=== PATIENT | female | born 1955 | race American Indian/Alaskan Native ===

== ENCOUNTER 2017-04-06 10:13 | Outpatient (CLI) | payer MEDICARE, MEDICAID ==
--- NOTE | 2017-04-06 11:55 | Magnetic Resonance Report ---
MRI LUMBAR SPINE WITHOUT CONTRAST INDICATION: Lumbar disc degenerative disease. COMPARISON: 05/14/2012 CT images. FINDINGS: Noncontrast axial and sagittal T1 and T2-weighted MRI of the lumbar spine demonstrates normal conus medullaris terminating at L1-L2. Mild T12 edema signal anteroinferiorly and also slight along L5 vertebral body inferiorly on the left noted. T11-L1 degenerative spurring noted. Normal remainder vertebral body stature, alignment and marrow signal. Asymmetric severe right renal atrophy again noted with numerous T2 hyperintense lesions/cysts, the largest approximately 1.5 cm. Probable compensatorily hypertrophied left kidney, though overall appearing slightly smaller since April 2012 edematous appearance. A 2 cm cystic/T2 hyperintense lesion towards the left lower quadrant partially imaged as on axial series 6, image 12 may conceivably be an exophytic left renal cyst. Nonaneurysmal abdominal aorta. T11-T12 and T12-L1 disc desiccation and mild narrowing with slight disc bulge noted. No cord effacement. On the obtained axial images: L1-L2 and L2-L3 discs are unremarkable. Slight bilateral facet effusions at L2-L3. L3-L4 demonstrates mild to moderate disc desiccation and narrowing. Mild diffuse disc bulge with slight ventral thecal sac flattening/indentation. AP thecal sac caliber 1.3 cm, axial series 6, image 18. Bilateral facet arthropathy. Slight ligamentum flavum hypertrophy. No exiting nerve root compression. L4-L5 demonstrate moderate bilateral facet arthropathy and disc degeneration. No spinal stenosis. Slight neural foraminal undercutting, right more than left. L5-S1 again demonstrates moderate to severe disc narrowing with vacuum phenomenon, also previously noted in 2012. Mild diffuse disc bulge, though predominantly ventral epidural without significant thecal sac effacement. Mild bilateral facet arthropathy. Mild bilateral neural foraminal undercutting also seen without definite exiting nerve root compression. CONCLUSION: 1. Multilevel spinal degenerative changes, greatest mid to lower lumbar and lower thoracic, as detailed above with overall appearance not significantly changed since April [address] CT. 2. Other findings, including asymmetrically atrophic right kidney with innumerable cysts and also left renal MRI appearance, as described above. Please correlate. Thank you for the opportunity to participate in this patient's care.
== END 2017-04-06 10:14 | disposition home or self-care (01) ==
LOC: MRI 10:13
PROVIDERS: ATTEND General Practice
DX: M51.36 Other intervertebral disc degeneration, lumbar region (principal); M12.88 Other specific arthropathies, not elsewhere classified, other specified site; M47.816 Spondylosis without myelopathy or radiculopathy, lumbar region; M47.814 Spondylosis without myelopathy or radiculopathy, thoracic region; M24.28 Disorder of ligament, vertebrae; I10 Essential (primary) hypertension; N26.1 Atrophy of kidney (terminal); N28.1 Cyst of kidney, acquired; Z87.448 Personal history of other diseases of urinary system
CPT/HCPCS: 72148

== ENCOUNTER 2017-06-08 10:39 | Emergency (ER) | payer MEDICARE ==
[2017-06-08 11:17] LABS: Basophils % (Auto) 0.9 % (0.0-1.8); Eosinophils % (Auto) 2.6 % (0.0-4.3); Hematocrit 47.2 % (30.3-42.9); Hemoglobin 15.3 gm/dl (10.1-14.3); Mean Corpuscular HGB Conc 32 % (30-34); Mean Corpuscular Hemoglobin 27 pg (28-32); Mean Corpuscular Volume 82 fl (79-97); Platelet Count 158 K/mm3 (140-440); Red Blood Count 5.73 M/mm3 (3.65-5.03); Red Cell Distribution Width 14.9 % (13.2-15.2); White Blood Count 10.1 K/mm3 (4.5-11.0)
[2017-06-08 11:27] LABS: Alanine Aminotransferase 18 units/L (7-56); Albumin 3.9 g/dL (3.9-5); Albumin/Globulin Ratio 1.2 %; Alkaline Phosphatase 63 units/L (35-129); Anion Gap 16 mmol/L; Blood Urea Nitrogen 18 mg/dL (7-17); Calcium 9.2 mg/dL (8.4-10.2); Carbon Dioxide 24 mmol/L (22-30); Chloride 101.7 mmol/L (98-107); Glucose 84 mg/dL (65-100); Lipase 69 units/L (13-60); Potassium 4.1 mmol/L (3.6-5.0); Sodium 138 mmol/L (137-145); Total Protein 7.2 g/dL (6.3-8.2)
[2017-06-08 12:53] VITALS: BP 153/66
--- NOTE | 2017-06-08 13:26 | Emergency Department Report ---
ED Abdominal Pain HPI - General Chief Complaint: Abdominal Pain Stated Complaint: ABD PAIN Time Seen by Provider: 06/08/17 13:10 Source: patient Mode of arrival: Ambulatory Limitations: No Limitations - History of Present Illness MD Complaint: abdominal pain -: Gradual Location: diffuse, periumbilical Radiation: none Migration to: no migration Severity scale (0 -10): 5 Quality: cramping Consistency: intermittent Improves With: nothing Worsens With: nothing Associated Symptoms: denies other symptoms Treatments Prior to Arrival: other (none) - Related Data Previous Rx's Medication Instructions Recorded Last Taken Type Dicyclomine [Bentyl] 10 mg PO QID #20 capsule 06/08/17 Unknown Rx Allergies Allergy/AdvReac Type Severity Reaction Status Date / Time No Known Allergies Allergy Unverified 04/06/17 10:13 ED Review of Systems ROS: Stated complaint: ABD PAIN Other details as noted in HPI Comment: All other systems reviewed and negative Constitutional: no symptoms reported Gastrointestinal: abdominal pain ED Past Medical Hx - Past Medical History Previous Medical History?: Yes Hx Hypertension: Yes - Surgical History Past Surgical History?: No - Social History Smoking Status: Current Every Day Smoker Substance Use Type: Non Opiate Pain, Prescribed - Medications Home Medications: Home Medications Medication Instructions Recorded Confirmed Last Taken Type Dicyclomine [Bentyl] 10 mg PO QID #20 capsule 06/08/17 Unknown Rx ED Physical Exam - General Limitations: No Limitations General appearance: alert, in no apparent distress - Head Head exam: Present: atraumatic - Eye Eye exam: Present: normal appearance, PERRL, EOMI Pupils: Present: normal accommodation - ENT ENT exam: Present: normal exam, normal orophraynx, mucous membranes dry, mucous membranes moist - Neck Neck exam: Present: normal inspection, tenderness - Respiratory Respiratory exam: Present: normal lung sounds bilaterally - Cardiovascular Cardiovascular Exam: Present: regular rate, normal rhythm - GI/Abdominal GI/Abdominal exam: Present: soft, normal bowel sounds - Back Exam Back exam: Present: normal inspection - Neurological Exam Neurological exam: Present: alert, altered, oriented X3 - Psychiatric Psychiatric exam: Present: normal affect - Skin Skin exam: Present: warm, dry ED Course Vital Signs 06/08/17 06/08/17 06/08/17 10:44 12:52 12:53 Temperature 98.5 F 98 F Pulse Rate 70 59 L Respiratory 16 18 18 Rate Blood Pressure 174/87 Blood Pressure 153/66 [Left] O2 Sat by Pulse 100 99 99 Oximetry - Reevaluation(s) Reevaluation #1: 06/08/17 14:49 feels better wants to go home. ED Medical Decision Making - Lab Data Result diagrams: 06/08/17 10:49 06/08/17 10:49 Critical care attestation.: If time is entered above; I have spent that time in minutes in the direct care of this critically ill patient, excluding procedure time. ED Disposition Clinical Impression: Persistent indigestion Disposition: DC-01 TO HOME OR SELFCARE Is pt being admited?: No Does the pt Need Aspirin: No Condition: Stable Instructions: Abdominal Pain (ED), Simethicone (By mouth) Prescriptions: Dicyclomine [Bentyl] 10 mg PO QID #20 capsule Referrals: MIKEY STEELE MD [Primary Care Provider] - 3-5 Days
[2017-06-08] MEDS ORDERED: LEVSIN (NF) PO ONE (13:30)
--- NOTE | 2017-06-08 14:08 | XRay Report ---
Single view abdomen: History: Abdominal pain. Findings: Stool in colon. No bowel distention or wall thickening. No radiopaque calculus or abnormal calcification. Impression: Essentially negative abdomen.
[2017-06-08] MEDS ORDERED: LEVSIN SL SL PRN (14:41)
[2017-06-08] MEDS ORDERED: LEVSIN SL SL ONE (15:00)
== END 2017-06-08 15:14 | disposition home or self-care (01) ==
LOC: ED 10:39
DX: K30 Functional dyspepsia (principal); I10 Essential (primary) hypertension; F17.200 Nicotine dependence, unspecified, uncomplicated
CPT/HCPCS: 36415; 74000; 80053; 83690; 85025; 99284

== ENCOUNTER 2017-07-04 07:25 | Outpatient (CLI) | payer MEDICARE ==
--- NOTE | 2017-07-04 11:21 | Mammography Report ---
BILATERAL MAMMOGRAM with CAD: HISTORY:New baseline screening. The patient's prior mammogram was greater than 10 years ago. FINDINGS: The breasts are almost entirely fat (<25% glandular). No mass, distortion, suspicious calcification, or skin change is seen. IMPRESSION: Negative mammogram. There is no mammographic evidence of malignancy. RECOMMENDATION: Follow-up per ACS guidelines. BI-RADS CATEGORY: 1 = Negative ACR BI-RADS MAMMOGRAPHIC CODES: 0 = Needs additional imaging evaluation; 1 = Negative; 2 = Benign; 3 = Probably benign; 4 = Suspicious; 5 = Malignant; 6 = Known biopsy-proven malignancy COMMENT: 1. Dense breast tissue, i.e., adenosis, fibrocystic changes, etc., may obscure an underlying neoplasm. 2. Approximately 10% of cancers are not detected with mammography. 3. A negative mammography report should not delay biopsy if a clinically suspicious mass is present. COMMENT: Patient follow-up letters are generated in [employer].
== END 2017-07-04 07:26 | disposition home or self-care (01) ==
LOC: MAMMO 07:25
PROVIDERS: ATTEND General Practice
DX: Z12.31 Encounter for screening mammogram for malignant neoplasm of breast (principal); I10 Essential (primary) hypertension; F17.200 Nicotine dependence, unspecified, uncomplicated
CPT/HCPCS: 77067; G0202